=== PATIENT | male | born 1940 | race Caucasian/White ===

== ENCOUNTER → 2019-11-06 | Outpatient (CLI) | payer OTHER ==
[~2019-11-06] MED LIST: BARIUM SULFATE 135 ML SUSP.RECON (E-Z-HD) PO ONE
== END | disposition home or self-care (01) ==
LOC: SRD 08:30
PROVIDERS: ATTEND Otolaryngology Plastic Surgery within the Head & Neck
DX: R13.10 Dysphagia, unspecified (principal)
CPT/HCPCS: 74220-TC